=== PATIENT | female | born 1990 | race Caucasian/White ===

== ENCOUNTER 2021-02-22 12:39 | Observation (INO) | payer OTHER ==
[~2021-02-22] VITALS: Ht 160 cm; Wt 88.5 kg
== END 2021-02-22 14:10 | disposition home or self-care (01) ==
LOC: SPU 12:39
PROVIDERS: ADMIT Specialist; ATTEND Specialist
DX: O36.8130 Decreased fetal movements, third trimester, not applicable or unspecified (principal); O62.9 Abnormality of forces of labor, unspecified; Z3A.40 40 weeks gestation of pregnancy
CPT/HCPCS: 59025; 76819; 81002; G0378; G0379

== ENCOUNTER 2021-02-25 15:44 | Inpatient (IN) | payer OTHER, SELFPAY ==
[~2021-02-25] VITALS: Ht 160 cm; Wt 88.5 kg
[2021-02-25] MEDS ORDERED: NALBUPHINE HCL 10 MG/ML AMP IVP PRN (18:15)
[2021-02-25] MEDS ORDERED: OXYTOCIN/0.9 % SODIUM CHLORIDE 1,000 ML IV SCH (18:15)
[2021-02-25] MEDS ORDERED: DINOPROSTONE 10 MG SUPP VG ONE (18:15)
[2021-02-25 18:33] VITALS: BP_SYST 134
[2021-02-25 18:50] LABS: BASOPHILS # (AUTO) 0.1 K/uL (0.0-0.2); EOSINOPHILS # (AUTO) 0.3 K/uL (0.0-0.4); HEMATOCRIT 33.5 % (36-48); HEMOGLOBIN 11.4 g/dL (12.0-16.0); LYMPHOCYTES # (AUTO) 1.8 K/uL (1.0-5.5); MEAN CORPUSCULAR HEMOGLOBIN 32 pg (27-31); MEAN CORPUSCULAR HGB CONC 34 % (32-36); MEAN CORPUSCULAR VOLUME 94 fL (79.0-98.0); MONOCYTES # (AUTO) 0.3 K/uL (0.0-1.0); MONOCYTES % (AUTO) 3.9 % (1.7-9.3); NEUTROPHILS # (AUTO) 6.3 K/uL (1.8-7.7); NEUTROPHILS % (AUTO) 72.1 % (40.0-70.0); PLATELET COUNT (AUTO) 272 K/uL (130-430); RED BLOOD CELL COUNT(AUTO) 3.59 MIL/uL (4.2-6.2); RED CELL DISTRIBUTION WIDTH 13.5 % (9.0-15.0); WHITE BLOOD COUNT (AUTO) 8.8 K/uL (4.8-10.8)
[2021-02-25] MEDS: LR 1,000 ML IV SCH (18:57)
[2021-02-26] MEDS: LR 1,000 ML IV SCH ×2 (16:14→20:48)
[2021-02-26] MEDS ORDERED: fentaNYL CITRATE/PF 100 MCG/2 ML AMP ONE (20:20)
[2021-02-26] MEDS ORDERED: FENT2mCg/mL-ROPIVA0.2%/NS EPID 200 ML EP SCH (20:20)
[2021-02-26] MEDS ORDERED: ROPIVACAINE HCL/PF 0.2% 200 ML ONE (20:21)
[2021-02-26 23:51] VITALS: BP_SYST 128
[2021-02-27] MEDS ORDERED: LR 500 ML IV ONE (07:15)
[2021-02-27] MEDS: LR 1,000 ML IV SCH (10:16)
[2021-02-27] MEDS ORDERED: CEFAZOLIN 2 GM IVPB PREMIX 50 ML IV ONE (12:45)
[2021-02-27] MEDS ORDERED: NALOXONE HCL 0.4 MG/ML AMP (NARCAN) IVP PRN ×3 (13:00→15:45)
[2021-02-27] MEDS ORDERED: KETOROLAC TROMETHAMINE 60 MG/2 ML VIAL IM PRN (13:00)
[2021-02-27] MEDS ORDERED: METOCLOPRAMIDE HCL 10 MG/2 ML VIAL IVP PRN (13:00)
[2021-02-27] MEDS ORDERED: ONDANSETRON HCL 4 MG/2 ML VIAL IVP PRN ×2 (13:00)
[2021-02-27] MEDS ORDERED: NALBUPHINE HCL 10 MG/ML AMP IVP PRN (13:00)
[2021-02-27] MEDS ORDERED: DIPHENHYDRAMINE INJ 50 MG/ML VIAL IVP PRN (13:00)
[2021-02-27] MEDS ORDERED: fentaNYL CITRATE/PF 100 MCG/2 ML AMP IVP PRN ×2 (13:00)
[2021-02-27] MEDS ORDERED: MORPHINE SULFATE 10MG/10ML PF AMP EP SCH (13:00)
[2021-02-27] MEDS ORDERED: ROPIVACAINE HCL/PF 0.2% 100 ML ONE (13:24)
[2021-02-27 15:44] VITALS: BP_SYST 131
[2021-02-27] MEDS ORDERED: BISACODYL 10 MG/SUPPOSITORY RC PRN (15:45)
[2021-02-27] MEDS ORDERED: LANOLIN 7 GM OINT. TP PRN (15:45)
[2021-02-27] MEDS ORDERED: DIPH-TET-PERTUS Vaccine 0.5 ML VIAL (ADACEL) I.M. PRN (15:45)
[2021-02-27] MEDS ORDERED: OXYCODONE/ACETAMINOPHEN *10*mg/325 mg TABLET PO PRN (15:45)
[2021-02-27] MEDS ORDERED: HYDROcodone/ACETAMIN 5-325 MG TAB (NORCO/ VICODIN) PO PRN (15:45)
[2021-02-27] MEDS ORDERED: ANUSOL 1 EA SUPP.RECT (PREPARATION H) RC PRN (15:45)
[2021-02-27] MEDS ORDERED: MEASLES,MUMPS&RUBELLA VACC/PF 12500 UNIT/0.5 ML VIAL SUBQ PRN (15:45)
[2021-02-27] MEDS ORDERED: RHO(D) IMMUNE GLOBULIN/MALTOSE 1500 UNITS/1.3 ML (WINHRO) IM PRN (15:45)
[2021-02-27] MEDS ORDERED: LR 1,000 ML IV SCH (15:45)
[2021-02-27] MEDS ORDERED: TEMAZEPAM 15 MG CAPSULE PO PRN (15:45)
[2021-02-27] MEDS ORDERED: BUPIVACAINE /PF 0.5% 30 ML VIAL ONE (15:50)
[2021-02-27] MEDS ORDERED: MIDAZOLAM HCL 5 MG/ML VIAL (VERSED) IV ONE (15:50)
[2021-02-27] MEDS ORDERED: MORPHINE SULFATE 10MG/10ML PF AMP ONE (15:50)
[2021-02-27] MEDS ORDERED: ePHEDrine sulfate 50 MG/ML VIAL ONE (15:50)
[2021-02-27] MEDS ORDERED: LR 1,000 ML IV.SOLN IV ONE (15:50)
[2021-02-27] MEDS: fentaNYL CITRATE/PF 100 MCG/2 ML AMP ONE ×2 (16:00→16:02)
[2021-02-27] MEDS ORDERED: ACETAMINOPHEN 325 MG TABLET PO PRN (18:15)
[2021-02-27] MEDS: CEFAZOLIN 1 GM IVPB PREMIX 50 ML IV SCH ×2 (18:19→23:56)
[2021-02-27] MEDS ORDERED: MEPERIDINE 50 MG/ML VIAL IVP ONE (18:45)
[2021-02-27] MEDS: OXYTOCIN/0.9 % SODIUM CHLORIDE 1,000 ML IV SCH (20:28)
[2021-02-27] MEDS ORDERED: SENNOSIDES/DOCUSATE SODIUM 1 TAB TABLET(SENOKOT-S) PO SCH (21:00)
[2021-02-27] MEDS ORDERED: MEPERIDINE HCL/PF 25 MG/ML DISP.SYRIN IM ONE (23:00)
[2021-02-28] MEDS: OXYTOCIN/0.9 % SODIUM CHLORIDE 1,000 ML IV SCH (04:32)
[2021-02-28] MEDS: CEFAZOLIN 1 GM IVPB PREMIX 50 ML IV SCH (06:29)
[2021-02-28] MEDS: KETOROLAC TROMETHAMINE 30 MG VIAL IVP SCH ×3 (06:29→18:11)
[2021-02-28 06:42] LABS: BASOPHILS % (AUTO) 0.3 % (0.0-2.0); EOSINOPHILS % (AUTO) 0.1 % (0.0-4.0); HEMATOCRIT 22.1 % (36-48); HEMOGLOBIN 7.4 g/dL (12.0-16.0); LYMPHOCYTES # (AUTO) 1.5 K/uL (1.0-5.5); LYMPHOCYTES % (AUTO) 11.1 % (20.5-51.5); MEAN CORPUSCULAR HEMOGLOBIN 32 pg (27-31); MEAN CORPUSCULAR HGB CONC 34 % (32-36); MEAN CORPUSCULAR VOLUME 95 fL (79.0-98.0); MONOCYTES # (AUTO) 0.4 K/uL (0.0-1.0); MONOCYTES % (AUTO) 2.6 % (1.7-9.3); NEUTROPHILS # (AUTO) 11.9 K/uL (1.8-7.7); NEUTROPHILS % (AUTO) 85.9 % (40.0-70.0); PLATELET COUNT (AUTO) 215 K/uL (130-430); RED BLOOD CELL COUNT(AUTO) 2.32 MIL/uL (4.2-6.2); RED CELL DISTRIBUTION WIDTH 13.6 % (9.0-15.0); WHITE BLOOD COUNT (AUTO) 13.8 K/uL (4.8-10.8)
[2021-02-28] MEDS: SIMETHICONE 80 MG TAB.CHEW PO PRN (11:46)
[2021-02-28] MEDS: DOCUSATE SODIUM 100 MG CAPSULE PO SCH ×2 (11:47→20:11)
[2021-02-28] MEDS: OXYCODONE/ACETAMINOPHEN 5-325 TABLET PO PRN (20:11)
[2021-03-01] MEDS: KETOROLAC TROMETHAMINE 30 MG VIAL IVP SCH
[2021-03-01] MEDS: IBUPROFEN 600 MG TABLET PO SCH ×2 (05:41→12:04)
[2021-03-01] MEDS: SIMETHICONE 80 MG TAB.CHEW PO PRN (08:07)
[2021-03-01] MEDS: DOCUSATE SODIUM 100 MG CAPSULE PO SCH (08:07)
[2021-03-01] MEDS: OXYCODONE/ACETAMINOPHEN 5-325 TABLET PO PRN (08:08)
--- NOTE | 2021-03-01 13:05 | NUR ---
Requested to see patient by RN-patient scored 9 on post depression screening. Spoke w/ patient in her room while she was breast feeding her baby. She was tearful and she voiced fear about being a new mother. She lives with her mother and is a single mother. She was given resources for support groups for post stress and depression. 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 Her mother came into the room, she seemed very supportive and excited about having a grandchild.
== END 2021-03-01 15:45 | disposition home or self-care (01) | DRG 788 ==
LOC: SPU 18:08
PROVIDERS: ADMIT Specialist; ATTEND Specialist
PROC: 3E0P7VZ Introduction of Hormone into Female Reproductive, Via Natural or Artificial Opening (ICD-10-PCS; 2021-02-27)
PROC: 10D00Z1 Extraction of Products of Conception, Low, Open Approach (ICD-10-PCS; principal; 2021-02-27 14:15)
DX: O62.2 Other uterine inertia (principal); O69.0XX0 Labor and delivery complicated by prolapse of cord, not applicable or unspecified; Z20.822 Contact with and (suspected) exposure to COVID-19; O69.81X0 Labor and delivery complicated by cord around neck, without compression, not applicable or unspecified; Z37.0 Single live birth; Z3A.40 40 weeks gestation of pregnancy
CPT/HCPCS: 36415; 85025; 86592; 86886; 86900; 86901; 94760; J0690; J1200; J1885; J2175; J2250; J2274; J2300; J2405; J2590; J2795; J3010; J3490; J7120